=== PATIENT | female | born 1960 | race Caucasian/White ===

== ENCOUNTER 2018-05-28 13:21 | Outpatient (CLI) | payer MEDICARE ==
--- NOTE | 2018-05-28 14:57 | MRI ---
CERVICAL SPINE MRI WITHOUT CONTRAST: Date: 05/28/18 COMPARISON: None. HISTORY: Neck pain with bilateral hand numbness. TECHNIQUE: Multiplanar, multisequence MR imaging of the cervical spine is provided without contrast media. FINDINGS: The sagittal STIR imaging demonstrates no focal area of osseous marrow edema. There is a mild to moderate degree of degenerative change at the atlantoaxial interspace. No signific ant anterolisthesis or retrolisthesis seen. No prevertebral soft tissue abnormality. C2-3: Facet and uncovertebral osteophyte formation noted bilaterally with mild left neural foraminal stenos is. Mild disc space narrowing and disc desiccation. No central canal or right neural foraminal stenos is. C3-4: There is disc desiccation with mild disc bulge and small central disc protrusion partially effacing t he ventral thecal sac with no significant central canal or neural foraminal stenosis. There is left-s ided facet hypertrophy. C4-5: There is disc space narrowing, disc desiccation, and a central annular tear with an associated centra l disc protrusion. This effaces the ventral thecal sac and abuts the ventral aspect of the cervical c ord with mild central canal stenosis. There is significant facet and uncovertebral osteophyte formati on on the left with moderate left neural foraminal stenosis. No significant right neural foraminal st enosis. C5-6: Mild disc space narrowing. Disc desiccation and minimal disc bulge. No central canal stenosis. Bilate ral facet and uncovertebral osteophyte formation, left greater than right. Mild left neural foraminal stenosis. C6-7: Disc space narrowing, disc desiccation, and mild disc bulge with partial effacement of the ventral th ecal sac and mild central canal stenosis. Facet and uncovertebral osteophyte formation noted bilatera lly with no significant neural foraminal stenosis on either side. C7-T1: Intervertebral disc height and signal intensity is grossly unremarkable with no significant central c anal or neural foraminal stenosis. Incidental note is made of a small T2 hyperintense and T1 hypointense round structure within the para glottic fat on the right measuring 7-8 mm, of uncertain clinical significance. No focal area of abnormal marrow signal intensity noted. No focal area of abnormal signal intensity is identified within the cervical cord. IMPRESSION: 1. Multilevel degenerative change noted within the cervical spine as described above. 2. Round, 8.0 mm, T2 hyperintense lesion within the paraglottic fat on the right. This nonspecific f inding should be further assessed via cervical spine MRI with IV contrast. CODE T. POS: [facility]
== END 2018-05-28 13:22 | disposition home or self-care (01) ==
LOC: TBSIIMAG 13:21
PROVIDERS: ATTEND Neurological Surgery
DX: M47.22 Other spondylosis with radiculopathy, cervical region (principal); J38.7 Other diseases of larynx
CPT/HCPCS: 72141

== ENCOUNTER 2018-07-18 15:10 | Outpatient (CLI) | payer MEDICARE ==
[2018-07-18 16:12] LABS: Hemoglobin 17.1 g/dL (12.0-16.0); Mean Corpuscular HGB CONC 32.5 g/dL (32.0-36.0); Mean Corpuscular Volume 98.5 fL (78.0-98.0); Mean Platelet Volume 7.5 fL (7.4-10.4); Platelet Count 351 thou/uL (130-400); RBC Distribution Width 12.9 % (11.5-14.5); Red Blood Cell (RBC) Count 5.33 mill/uL (4.20-5.40); White Blood Cell (WBC) Count 9.2 thou/uL (4.8-10.8)
[2018-07-18 16:30] LABS: Anion Gap 12 mmol/L (10-20); BUN (Urea Nitrogen) 9 mg/dL (9.8-20.1); Calc. Creatinine Clearance 0 mL/min (70-130); Calcium 9.8 mg/dL (7.8-10.44); Carbon Dioxide 22 mmol/L (22-29); Chloride 108 mmol/L (98-107); Estimated GFR-MDRD 66; Glucose 95 mg/dL (70-105); Sodium 138 mmol/L (136-145)
--- NOTE | 2018-07-19 22:45 | EKG ---
Test Reason : Blood Pressure : / mmHG Vent. Rate : 087 BPM Atrial Rate : 087 BPM P-R Int : 140 ms QRS Dur : 070 ms QT Int : 354 ms P-R-T Axes : 061 091 052 degrees QTc Int : 425 ms Normal sinus rhythm Rightward axis Nonspecific T wave abnormality Abnormal ECG No previous ECGs available Confirmed by MARIA ELENA HOLT, DR. Villanueva ([id number]) on 07/19/2018 10:45:12 PM Referred By: SABRINA Confirmed By:DR. Kay ARREDONDO MD
== END 2018-07-18 15:11 | disposition home or self-care (01) ==
LOC: LABBT 15:10
PROVIDERS: ATTEND Neurological Surgery
DX: Z01.818 Encounter for other preprocedural examination (principal); M54.12 Radiculopathy, cervical region
CPT/HCPCS: 80048; 85027; 93005; 93010

== ENCOUNTER 2018-07-21 06:44 | Day surgery (SDC) | payer MEDICARE ==
[2018-07-18 15:42] VITALS: BMI 30.5
[2018-07-21] MEDS ORDERED: Sodium Chloride 0.9% 10 ML ONE (07:06)
[2018-07-21] MEDS ORDERED: CEFAZOLIN/Water 2 GM/20 ML SYRINGE ONE (07:06)
[2018-07-21] MEDS ORDERED: Midazolam HCl 2 mg/2 ml Vial ONE (07:15)
[2018-07-21] MEDS ORDERED: Fentanyl 100 MCG/2 ML VIAL ONE ×3 (07:21→09:52)
[2018-07-21] MEDS ORDERED: SUGAMMADEX SODIUM 200 MG/2 ML VIAL ONE (08:47)
--- NOTE | 2018-07-21 09:10 | OP ---
DATE OF PROCEDURE: 07/21/2018 SURGEON: Antonio Elias POLICE SUPERINTENDENT: Saúl Hubbard PA-C PROCEDURE: Anterior discectomy C6-7, interbody arthrodesis, intravertebral biomechanical device, loc al morselized autograft, demineralized bone matrix, anterior titanium instrumentation C6-C7. PROCEDURE IN DETAIL: The patient was brought to the operating room intubated. She was positioned gore pine with head in modest extension on a gel-filled donut. Incision was made in the right precervical area and dissecting medial to the sternocleidomastoid muscle, identified the anterior cervical spine and our level was confirmed by x-ray. We placed distraction across C6-7 and debrided the intraverte bral disc, completely decompressing the neural elements. The bony endplates were then decorticated f or the purpose of arthrodesis and appropriately sized intravertebral biomechanical PEEK device was br ought into the field, filled with demineralized bone matrix, local morselized autograft, and tapped i nto place securely at C6-7. Next, an anterior plate was brought in the field and secured to C6 and C 7 using two 14 mm screws at each level. The wound was then extensively irrigated, immaculate hemosta sis was secured, and the wound was closed in anatomic layers.
[2018-07-21] MEDS ORDERED: HYDROmorphone 2 MG/ML VIAL ONE (09:26)
[2018-07-21] MEDS ORDERED: HYDROcodone/Acetaminophen 5/325 mg Tablet ONE (11:25)
[2018-07-21] MEDS ORDERED: Ondansetron HCl/PF 4 MG/2 ML Vial ONE (12:00)
[2018-07-21] MEDS ORDERED: Glycopyrrolate 0.2 MG/ML 5 ML SYRINGE ONE (12:00)
[2018-07-21] MEDS ORDERED: Lidocaine 1% PF 5 ML VIAL ONE (12:00)
[2018-07-21] MEDS ORDERED: PROPOFOL 200 MG/20 ML VIAL ONE (12:00)
[2018-07-21] MEDS ORDERED: Hydrocortisone Sod Succ/PF 100 mg/2 ml Vial ONE (12:00)
== END 2018-07-21 11:40 | disposition home or self-care (01) ==
LOC: SDC 06:44
PROVIDERS: ATTEND Neurological Surgery
PROC: 0RG10A0 Fusion of Cervical Vertebral Joint with Interbody Fusion Device, Anterior Approach, Anterior Column, Open Approach (ICD-10-PCS; principal; 2018-07-21)
PROC: 0RT30ZZ Resection of Cervical Vertebral Disc, Open Approach (ICD-10-PCS; 2018-07-21)
DX: M50.123 Cervical disc disorder at C6-C7 level with radiculopathy (principal); M48.02 Spinal stenosis, cervical region; E78.5 Hyperlipidemia, unspecified; I12.9 Hypertensive chronic kidney disease with stage 1 through stage 4 chronic kidney disease, or unspecified chronic kidney disease; N18.9 Chronic kidney disease, unspecified; Z79.82 Long term (current) use of aspirin; Z79.899 Other long term (current) drug therapy; Z88.8 Allergy status to other drugs, medicaments and biological substances
CPT/HCPCS: 20930; 20936; 22551; 22853; 76001; 96374; 96375; 96376; C1713; C1776; A4216; J1170; J1720; J2001; J2250; J2405; J2704; J3010; J3490

== ENCOUNTER 2018-08-05 15:47 | Outpatient (CLI) | payer MEDICARE ==
--- NOTE | 2018-08-05 17:10 | RAD ---
CERVICAL SPINE RADIOGRAPH SERIES 4 VIEWS: INDICATION: Neck pain with history of prior surgery. FINDINGS: Anterior metallic fusion of C6-7 levels present with anterior metal plate, vertebral body screws, and an intervening disk space prosthesis. No hardware complication identified. The craniocervical junc tion is intact. There is multilevel mild to moderate facet osteoarthritis. No compression deformity or significant malalignment. There is a slight asymmetric prominence of the prevertebral soft tissu es at the C4 level which could relate to the adjacent postoperative site. Correlate clinically in th is regard. IMPRESSION: 1. Postoperative and degenerative findings of the cervical spine as above. 2. Slight asymmetric prominence of prevertebral soft tissues of the C4 level, just cephalad to the o perative site, and, therefore, this could relate to operative change in the absence of acute symptoms . Correlate clinically. POS: [facility]
== END 2018-08-05 15:48 | disposition home or self-care (01) ==
LOC: TBSIIMAG 15:47
PROVIDERS: ATTEND Neurological Surgery
DX: M54.2 Cervicalgia (principal); M47.892 Other spondylosis, cervical region; Z98.890 Other specified postprocedural states
CPT/HCPCS: 72040

== ENCOUNTER 2018-09-16 13:37 | Outpatient (CLI) | payer MEDICARE ==
--- NOTE | 2018-09-16 17:46 | RAD ---
4 VIEWS CERVICAL SPINE: Date: 09/16/18 INDICATION: Spinal stenosis of the cervical spinal region. FINDINGS: There is a ACDF at C6-7. Spinal alignment appears within normal limits. No acute fracture is evident. Lateral masses are symmetric. Instrumentation projects in the expected position without gross eviden ce of complication. Lung apices are clear. IMPRESSION: Stable postsurgical change of the cervical spine. POS: [facility]
== END 2018-09-16 13:38 | disposition home or self-care (01) ==
LOC: TBSIIMAG 13:37
PROVIDERS: ATTEND Neurological Surgery
DX: M48.02 Spinal stenosis, cervical region (principal); Z98.890 Other specified postprocedural states
CPT/HCPCS: 72040

== ENCOUNTER 2018-09-24 07:37 | Outpatient (CLI) | payer MEDICARE ==
[2018-09-23 09:02] VITALS: BMI 30.5
[2018-09-24] MEDS ORDERED: Iopamidol-M 200 41% 20 ML VIAL ONE (10:46)
--- NOTE | 2018-09-24 11:14 | RAD ---
LUMBAR MYELOGRAM: HISTORY: Acute lumbar radiculopathy. Previous lumbar fusion. EXPOSURE: 0.5 minutes 200.2 Gy per m2. FINDINGS: Two view lumbar spine fisheries director radiograph demonstrates five lumbar type foreign bodies. There are bilat eral transpedicular screws at L5 and S1. No perihardware lucency. No evidence of spondylolisthesis. Laminectomy defect at L5. Disk prosthesis at L5-S1. Successful lumbar puncture. A total of 10 mL of Isovue-M200 contrast was administered intrathecally. The patient tolerated the procedure well. No immediate or post procedure complications TECHNIQUE: Consent obtained to perform a lumbar puncture with fluoroscopic guidance. The L2-L3 level was deemed appropriate. The skin was prepped and draped in a sterile fashion. Lidocaine 1%, buffered with sod ium bicarbonate, was used for local anesthesia. Under fluoroscopic guidance, a 22 gauge spinal needl e was advanced into the CSF space. The inner stylet was removed. There was prompt flow of clear CSF into the hub of the needle. Via a short tubing catheter, a total of 10 mL of Isovue-M200 contrast w as administered intrathecally. No immediate or post procedure complications. IMPRESSION: Successful lumbar puncture for lumbar myelogram. POS: [facility]
--- NOTE | 2018-09-24 11:36 | CT ---
POST MYELOGRAM LUMBAR SPINE CT: HISTORY: Acute lumbar radiculopathy. COMPARISON: None. TECHNIQUE: Post myelogram lumbar spine CT is performed in the axial plane. Reformatted images are submitted for interpretation. FINDINGS: The gallbladder is surgically absent. Atherosclerosis of a nonaneurysmal aorta. Symmetric attenuati on of the psoas muscles. The visualized solid organs are grossly unremarkable. Unremarkable visuali zed alimentary canal. There are bilateral transpedicular screws at L5 and S1. No perihardware lucency. Laminectomy defect s at L4-L5 and at L5-S1 disk spaces. There is a disk prosthesis at the L5-S1 level. Partial resecti on of the left L5 facet is noted. There are five lumbar type vertebral bodies. No evidence of vertebral body fracture. The conus medullaris terminates at the upper aspect of L1. T11-T12/T12-L1: No significant central canal stenosis or foraminal narrowing. L1-L2: No significant central canal stenosis or neural foraminal narrowing. L2-L3: No significant central canal stenosis or neural foraminal narrowing. L3-L4: No significant central canal stenosis or neural foraminal narrowing. L4-L5: Posterior laminectomy defect. Minimal generalized disk bulge. Mild bilateral facet hypertro phy. No significant central canal stenosis. Mild bilateral foraminal narrowing. L5-S1: Laminectomy defect. No significant central canal stenosis. Mild bilateral foraminal narrowi ng. IMPRESSION: 1. Lumbar fusion changes as above. 2. No significant central canal stenosis or significant neural foraminal narrowing. POS: [facility]
== END 2018-09-24 07:38 | disposition home or self-care (01) ==
LOC: RAD 07:37
PROVIDERS: ATTEND Neurological Surgery
DX: M54.16 Radiculopathy, lumbar region (principal); Z98.1 Arthrodesis status
CPT/HCPCS: 62304; 72132

== ENCOUNTER 2019-01-19 08:33 | Inpatient (IN) | payer MEDICARE ==
[2019-02-23 07:08] LABS: #Basophils 0.2 thou/uL (0.0-0.2); #Eosinphils 0.3 thou/uL (0.0-0.7); #Lymphocytes 4.5 thou/uL (1.20-3.40); #Monocytes 0.7 thou/uL (0.11-0.59); #Neutrophils 4.8 thou/uL (1.40-6.50); %Basophils 1.5 % (0.0-1.0); %Eosinophils 2.8 % (0.0-10.0); %Lymphocytes 42.7 % (21.0-51.0); %Monocytes 7.1 % (0.0-10.0); Hemoglobin 18.8 g/dL (12.0-16.0); Mean Corpuscular HGB CONC 33.7 g/dL (32.0-36.0); Mean Corpuscular Hemoglobin 33.7 pg (27.0-31.0); Mean Platelet Volume 7.5 fL (7.4-10.4); Platelet Count 285 thou/uL (130-400); RBC Distribution Width 13.1 % (11.5-14.5); Red Blood Cell (RBC) Count 5.57 mill/uL (4.20-5.40); White Blood Cell (WBC) Count 10.4 thou/uL (4.8-10.8)
[2019-02-23] MEDS ORDERED: Fentanyl 100 MCG/2 ML VIAL ONE ×3 (07:16→09:10)
[2019-02-23 07:28] LABS: Anion Gap 17 mmol/L (10-20); BUN (Urea Nitrogen) 15 mg/dL (9.8-20.1); Calc. Creatinine Clearance 70 mL/min (70-130); Calcium 10.2 mg/dL (7.8-10.44); Carbon Dioxide 18 mmol/L (22-29); Chloride 105 mmol/L (98-107); Estimated GFR-MDRD 53; Glucose 100 mg/dL (70-105); Potassium 4.5 mmol/L (3.5-5.1); Sodium 135 mmol/L (136-145)
[2019-02-23] MEDS ORDERED: Sodium Chloride 0.9% 10 ML ONE (07:49)
[2019-02-23] MEDS ORDERED: HYDROmorphone 2 MG/ML VIAL SLOW IVP PRN (09:00)
[2019-02-23] MEDS ORDERED: Promethazine HCl 25 MG/ML VIAL SLOW IVP PRN (09:00)
[2019-02-23] MEDS ORDERED: Promethazine HCl 25 MG/ML VIAL IM PRN ×2 (09:00→11:49)
[2019-02-23] MEDS ORDERED: Ondansetron HCl/PF 4 MG/2 ML Vial IVP PRN (09:00)
[2019-02-23] MEDS ORDERED: PACU-Morphine 4MG/ML VIAL SLOW IVP PRN (09:00)
[2019-02-23] MEDS ORDERED: HYDROmorphone 2 MG/ML VIAL ONE ×2 (09:12→10:14)
--- NOTE | 2019-02-23 11:34 | OP ---
DATE OF PROCEDURE: 02/23/2019 DRYWALL HANGER: Praneeth Hubbard PA-C. PROCEDURE PERFORMED: Exploration with spinal fusion, L5-S1; attempted removal of hardware, L5-S1; posterolateral arthrodesis, L4-L5; BMP cancellous bone chips. DESCRIPTION OF PROCEDURE: The patient was brought to the operating room and intubated. She was rolled in a prone position on gel-filled chest rolls. Previous incisions were opened and extended superiorly exposing L4 through S1. We explored the spinal fusion at L5-S1 and seemed to be solid. We attempted to remove the nuts and rods at L5-S1 and could not adequately cannulate the nuts despite using all available hardware. We therefore elected not to place the screws at L4 because it would not be able to connect them into the hardware at L5-S1. We prepared the posterolateral surfaces for the purpose of arthrodesis at L4-L5 and placed a combination of BMP combined with cancellous bone chips around the L4-L5 laminae and lateral masses. The wound had been extensively irrigated prior to this and maximum hemostasis had been secured. Vancomycin powder was applied and the wound was then closed in anatomic layers. Job ID: [id number]
[2019-02-23] MEDS ORDERED: Promethazine HCl 12.5 MG SUPP PR PRN (11:49)
[2019-02-23] MEDS ORDERED: diphenhydrAMINE 50 MG/ML VIAL IVP PRN (11:49)
[2019-02-23] MEDS ORDERED: HYDROcodone/Acetaminophen 10/325 mg Tablet PO PRN (11:49)
[2019-02-23] MEDS ORDERED: Milk Of Magnesia 30 ML UDCUP PO PRN (11:49)
[2019-02-23] MEDS ORDERED: Ondansetron PF 4 MG/2 ML Vial IM PRN (11:49)
[2019-02-23] MEDS ORDERED: traMADol HCl 50 MG TAB PO PRN ×2 (11:49)
[2019-02-23] MEDS ORDERED: Mag-Al 1200 mg/1200 mg/30 ML UDCUP PO PRN (11:49)
[2019-02-23] MEDS ORDERED: diphenhydrAMINE 25 MG CAP PO PRN (11:49)
[2019-02-23] MEDS ORDERED: tiZANidine HCl 4 MG TAB PO PRN (11:49)
[2019-02-23] MEDS ORDERED: Promethazine 25 MG TAB PO PRN (11:49)
[2019-02-23] MEDS ORDERED: Morphine 2 MG/ML SYRINGE SLOW IVP PRN (11:53)
[2019-02-23] MEDS: Morphine 4 MG/ML VIAL SLOW IVP PRN ×3 (12:07→20:42)
[2019-02-23] MEDS ORDERED: PHENYLEPHRINE-NS 100 MCG/ML 10 ML SYRINGE ONE (12:10)
[2019-02-23] MEDS ORDERED: PROPOFOL 200 MG/20 ML VIAL ONE (12:10)
[2019-02-23] MEDS ORDERED: Lidocaine 1% PF 5 ML VIAL ONE (12:10)
[2019-02-23] MEDS ORDERED: Rocuronium Bromide 10 MG/ML (10ML VIAL) ONE (12:10)
[2019-02-23] MEDS ORDERED: Glycopyrrolate 0.2 MG/ML 5 ML SYRINGE ONE (12:10)
[2019-02-23] MEDS ORDERED: Ondansetron PF 4 MG/2 ML Vial ONE (12:10)
[2019-02-23] MEDS: Sodium Chloride 0.9% 1,000 ML IV SCH ×2 (13:04→17:54)
[2019-02-23 13:10] VITALS: BMI 31.5
[2019-02-23] MEDS: HYDROcodone/Acetaminophen 10/325 mg Tablet PO PRN ×3 (15:06→22:59)
[2019-02-23] MEDS: Gabapentin 400 MG CAP PO SCH ×2 (15:06→20:43)
[2019-02-23] MEDS: CEFAZOLIN 2 GM in Premix Bag 1 BAG IVPB SCH ×2 (15:07→22:59)
[2019-02-23] MEDS: Melatonin 3 MG TAB PO SCH (20:43)
[2019-02-23] MEDS: Rosuvastatin 5 MG TAB PO SCH (20:43)
[2019-02-23] MEDS: Amitriptyline HCl 25 MG TAB PO SCH (20:43)
--- NOTE | 2019-02-24 06:50 | PRG ---
DATE OF SERVICE: 02/24/2019 The patient is a 59-year-old female, status post extension of her lumbar fusion to L4. Following the surgery, she was transitioned to the Med/Surg floor. She has had some issues with pain control overnight, but slow to mobilize. She is voiding appropriately and tolerating a regular diet. She has had no incisional drainage issues. The patient is awake, alert, in no acute distress. She has free active range of motion of all extremities. No focal motor weakness or reflex asymmetry. Her dressing is dry and intact. We will plan to continue to mobilize with the assistance of Physical Therapy and work on pain control. I anticipate home in 1 to 2 days. Job ID: [id number]
[2019-02-24] MEDS: HYDROcodone/Acetaminophen 10/325 mg Tablet PO PRN ×3 (06:55→20:43)
[2019-02-24] MEDS: Gabapentin 400 MG CAP PO SCH ×3 (08:33→20:43)
[2019-02-24] MEDS: Calcium Carbonate + Vit D 1 TAB PO SCH (08:33)
[2019-02-24] MEDS: Morphine 4 MG/ML VIAL SLOW IVP PRN ×2 (08:44→18:30)
[2019-02-24] MEDS: Lisinopril 10 MG TAB PO SCH (11:10)
[2019-02-24] MEDS: Sodium Chloride 0.9% 1,000 ML IV SCH (14:48)
[2019-02-24] MEDS: Melatonin 3 MG TAB PO SCH (20:42)
[2019-02-24] MEDS: Rosuvastatin 5 MG TAB PO SCH (20:42)
[2019-02-24] MEDS: Amitriptyline HCl 25 MG TAB PO SCH (20:43)
[2019-02-25] MEDS: Sodium Chloride 0.9% 1,000 ML IV SCH (05:00)
[2019-02-25] MEDS: HYDROcodone/Acetaminophen 10/325 mg Tablet PO PRN ×2 (05:01→09:19)
[2019-02-25] MEDS: Calcium Carbonate + Vit D 1 TAB PO SCH (09:11)
[2019-02-25] MEDS: Gabapentin 400 MG CAP PO SCH (09:11)
[2019-02-25] MEDS: Lisinopril 10 MG TAB PO SCH (09:12)
[2019-02-25 11:19] VITALS: BP 94/58; TEMP 98.6
--- NOTE | 2019-02-25 11:21 | DIS ---
DATE OF ADMISSION: 02/23/2019 DATE OF DISCHARGE: 02/25/2019 HOSPITAL COURSE: The patient is a 59-year-old female, status post removal of hardware and extension of fusion to L4-L5. Following the surgery, she was transitioned to the Med/Surg floor, where her pain was well controlled with p.o. medications, she was tolerating a regular diet, and she was voiding appropriately. The patient did have postural headaches over the first night, but this resolved after postoperative day #1. Her pain was improved and she mobilized appropriately with Physical Therapy. By postoperative day #2, her pain was significantly reduced and she felt that she was ready to go home. On exam this morning, she is awake, alert, in no acute distress. She has free active range of motion of all extremities. No focal motor weakness or reflex asymmetry. We will plan to dismiss the patient to home. I have discussed home care precautions and will follow up in 2 weeks. Job ID: [id number]
== END 2019-02-25 13:16 | disposition home or self-care (01) | DRG 460 ==
LOC: EDSTATUS 16:14 → SURG A 02-23 06:39
PROVIDERS: ADMIT Neurological Surgery; ATTEND Neurological Surgery
PROC: 0SG00K1 Fusion of Lumbar Vertebral Joint with Nonautologous Tissue Substitute, Posterior Approach, Posterior Column, Open Approach (ICD-10-PCS; principal; 2019-02-23)
DX: M54.16 Radiculopathy, lumbar region (principal); Z88.5 Allergy status to narcotic agent; Z90.49 Acquired absence of other specified parts of digestive tract; Z90.710 Acquired absence of both cervix and uterus
CPT/HCPCS: 36415; 76000; 80048; 85025; 93005; 93010; J0131; J0690; J1170; J2001; J2270; J2405; J2704; J3010; J3370; J3490; J7620

== ENCOUNTER 2019-03-05 11:14 | Outpatient (CLI) | payer MEDICARE ==
--- NOTE | 2019-03-05 11:30 | RAD ---
EXAM: Lumbar spine 2 views: HISTORY: Lumbar radiculopathy COMPARISON: 09/24/2018 FINDINGS: Postoperative laminectomy and pedicle screws and intradiscal prosthesis at L5-S1. Stable from prior study. No evidence for acute fracture or dislocation involving the visualized spine. There are disc osteophytosis and facet arthrosis changes. No evidence for malalignment. No evidence for a bone lesion. IMPRESSION: Spondylosis. Stable postoperative changes.
== END 2019-03-05 11:15 | disposition home or self-care (01) ==
LOC: TBSIIMAG 11:14
PROVIDERS: ATTEND Neurological Surgery
DX: M47.26 Other spondylosis with radiculopathy, lumbar region (principal); Z98.890 Other specified postprocedural states
CPT/HCPCS: 72100

== ENCOUNTER 2019-04-14 15:53 | Outpatient (CLI) | payer MEDICARE ==
--- NOTE | 2019-04-14 16:06 | RAD ---
EXAM: XR Lumbar Spine 2 Or 3 View PROVIDED CLINICAL HISTORY: Low back pain. Follow-up low back surgery. COMPARISON: 03/05/2019 FINDINGS: Postsurgical changes lumbosacral junction are again noted with bipedicular screws and posterior rods again transfixing this level with evidence of laminectomy defect. Intradiscal prosthesis is again seen. The particular screws in the L5 vertebral body approach the superior margin of the L5 vertebral body unchanged from prior study. The vertebral body heights are within normal limits. No fracture or subluxation is identified. Vascular calcifications are again seen in the abdominal aorta. Surgical clips overlie the right upper quadrant. IMPRESSION: Stable postoperative changes lumbosacral junction.
== END 2019-04-14 15:54 | disposition home or self-care (01) ==
LOC: TBSIIMAG 15:53
PROVIDERS: ATTEND Neurological Surgery
DX: M54.5 Low back pain (principal); Z98.890 Other specified postprocedural states
CPT/HCPCS: 72100

== ENCOUNTER 2019-07-14 15:28 | Outpatient (CLI) | payer MEDICARE ==
--- NOTE | 2019-07-14 15:44 | RAD ---
EXAM: 2 views of the lumbosacral spine HISTORY: Low back surgery in February 2019 COMPARISON: 04/14/2019 FINDINGS: 2 views of the lumbosacral spine shows the patient is status post posterior fusion of L5 an d S1 with bilateral pedicle screws. A disc spacer is seen in good position within the intervening disc space. There is normal height and alignment of the vertebral bodies and intervertebral discs wit hout fracture or subluxation. Vascular calcic lesions are seen. The sacroiliac joints are unremarkable. IMPRESSION: Postsurgical changes of the lumbar spine without evidence of complication.
== END 2019-07-14 15:29 | disposition home or self-care (01) ==
LOC: TBSIIMAG 15:28
PROVIDERS: ATTEND Neurological Surgery
DX: M54.16 Radiculopathy, lumbar region (principal); Z98.890 Other specified postprocedural states
CPT/HCPCS: 72100

== ENCOUNTER 2019-07-30 09:29 | Outpatient (CLI) | payer MEDICARE ==
--- NOTE | 2019-07-30 12:28 | MRI ---
MRI LUMBAR SPINE WITH AND WITHOUT CONTRAST: INDICATIONS: Back pain. History of lumbar surgery. COMPARISON: Post myelogram CT lumbar spine from 09/24/2018. FINDINGS: Vertebral bodies maintain height and alignment and exhibit normal signal. Postoperative changes are a gain noted at L5-S1. There are pedicle screws at this level and there is an interbody disk implant wi th interbody fusion at this level. Posterior laminectomy changes at this level. No significant disk bulge or disk protrusion seen at L1-L2, L2-L3 or L3-L4 levels. Mild facet arthros is at these levels however, no central canal or foraminal stenosis at these levels. At L4-L5 there is a small central disk protrusion which indents the anterior thecal sac. This is more pronounced than on the exam of 09/24/2018. There is facet hypertrophy compressing the thecal sac fro m each side. These changes result in mild central canal stenosis. Mild foraminal narrowing due to the facet hypertrophy and disk bulge. At L5-S1 postoperative changes are noted. There is no central canal stenosis. No significant foramina l stenosis apparent. IMPRESSION: 1. Small disk protrusion at L4-L5 as described. 2. Postoperative changes at L5-S1 as described. POS: [facility]
== END 2019-07-30 09:30 | disposition home or self-care (01) ==
LOC: TBSIIMAG 09:29
PROVIDERS: ATTEND Neurological Surgery
DX: M51.16 Intervertebral disc disorders with radiculopathy, lumbar region (principal); M43.16 Spondylolisthesis, lumbar region; M54.5 Low back pain; Z98.890 Other specified postprocedural states
CPT/HCPCS: 72158